=== PATIENT | female | born 1985 | race African-American/Black ===

== ENCOUNTER 2016-10-22 07:23 | Emergency (ER) | payer OTHER ==
[~2016-10-22] VITALS: Ht 165.1 cm; Wt 74.8 kg
[~2016-10-22 07:23] MED LIST: BENTYL20 M1 PO; FLEXERIL10 MG PO; GOOD SENSE IBU200 MG PO; IBU800 MG PO; IBUPROFEN800 M1 PO; LEVSIN0.125 MG PO; MOTRIN600 MG PO; PEPCID20 MG PO; TRAMADOL HCL50 M1 PO; ZOFRAN4 M1 PO; ZOFRAN4 M2 PO; ZOFRAN4 MG PO
[2016-10-22 07:32] VITALS: BP 122/77
--- NOTE | 2016-10-22 07:58 | ED ANKLE/FOOT INJURY COMPLAINT ---
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 IF I'M CLEANING AND I GO TO GET UP THERE IS A POPPING NOISE". HAS BEEN SEEN FOR THE SAME, HAS HAD XRAYS "THEY DON'T FIND ANYTHING". Triage Nurses Notes Reviewed? yes : No Patient currently breastfeeds: No HPI: MS. CELIS IS A 31 YO F W/ REMOTE PMH OF L KNEE PAIN. PAIN HAS BEEN ONGOING FOR THE PAST YEAR. PT STATES SHE WORKS A [employer] WHERE SHE IS IN HER FEET FOR 10-12 HRS A DAY. PT STATES WHEN SHE STANDS UP FROM BEING HER KNEES (FOR EXAMPLE CLEANING A TUB), SHE NOTICES THAT HE KNEE POPS (SHE COMPARES INVOLUNTARY CRACKING OF HER KNUCKLES). SHE NOTES AFTER THE POPPING, SHE DEVELOPS A BURNING PAIN SENSATION AND SOME STIFFNESS. PT DENIES ANY FALLS OR TRAUMA TO THE AREA. SHE PRESENTED TODAY BC SHE NOTED AN EPISODE YESTERDAY AND HAD AN ACUTE WORSENING OF HER KNEE PAIN. SHE DENIES INABILITY TO BEAR WEIGHT OR GAIT INSTABILITY. PT DENIES CP, ABD PAIN, N/V/D, FEVER, CHILL OR COUGH. OF NOTE, PMH NOTES DM, BUT PATIENT HAS HAD >100 LBS OF WEIGHT LOSS, AND NO LONGER TAKES METFORMIN. (INOCENCIA MEDINA,FELIPE) Reconcile Medications No Known Home Medications (VERONICA MEDINA,AILIN Marquez) Past History Travel History Traveled to [place] past 21 day No Medical History Any Pertinent Medical History? none Neurological: migraine EENT: NONE Cardiovascular: NONE Respiratory: NONE Gastrointestinal: NONE Hepatic: NONE Renal: NONE Musculoskeletal: NONE Psychiatric: depression Endocrine: diabetes, WEIGHT LOSS) Blood Disorders: NONE Cancer(s): NONE MANAGER GREEN/Reproductive: NONE Surgical History Surgical History: non-contributory, N Psychosocial History What is your primary language Prydeinig Tobacco Use: Current Daily Use Daily Tobacco Use Amount/Type: => 5 Cigarettes daily ETOH Use: denies use Illicit Drug Use: denies illicit drug use Family History Hx Contributory? No (FELIPE PRO MD) Review of Systems Review of Systems Constitutional: Reports: no symptoms. EENTM: Reports: no symptoms. Respiratory: Reports: no symptoms. Cardiovascular: Reports: no symptoms. GI: Reports: no symptoms. Musculoskeletal: Reports: joint pain, joint swelling. Skin: Reports: no symptoms. Neurological/Psychological: Reports: no symptoms. Hematologic/Endocrine: Reports: no symptoms. Immunologic/Allergic: Reports: no symptoms. All Other Systems: Reviewed and Negative (FELIPE PRO MD) Physical Exam Physical Exam General Appearance: well developed/nourished, no apparent distress, alert, awake Head: atraumatic, normal appearance Eyes: Bilateral: normal appearance, PERRL, EOMI. Ears, Nose, Throat: normal pharynx, normal ENT inspection, hearing grossly normal Neck: normal inspection, supple, full range of motion Cardiovascular/Respiratory: normal breath sounds, normal peripheral pulses, regular rate/rhythm, no respiratory distress Gastrointestinal: SOFT, NONTENDER Back: normal inspection, normal range of motion Leg/Knee/Thigh Left: normal range of motion, normal inspection Leg/Knee/Thigh Right: normal range of motion, normal inspection Ankle Left: normal inspection, normal range of motion Ankle Right: normal inspection, normal range of motion Neuro/Vascular: normal motor function, normal sensation Psychiatric: awake, alert, oriented x 3 Skin: intact, normal color, warm/dry (FELIPE PRO MD) Progress Differential Diagnosis: DVT, fracture, sprain, contusion, ARTHRITIS (FELIPE PRO MD) Plan of Care: Orders Procedure Date/time Status Durable Medical Equipment 10/22 0800 Active 31 YO F W/ KNEE PAIN X1 YR. NO ACUTE TRAUMA OR INJURY, SO UNLIKELY FRACTURE OR DISLOCATION. KNEE IS STABLE TO EXAMINATION AND DOES NOT APPEAR TO HAVE ANY JOINT EFFUSION OR SWELLING. PT HAS NO RISK FACTORS FOR DVT, AND IS PERC 0. PT ALSO DOES NOT ENDORSE CALF PAIN OR SWELLING. HISTORY AND EXAM CONSISTENT W/ SOURCE OF DISTRESS BEING THE KNEE. GIVEN CHRONICITY OF PAIN AND LACK OF ACUTE TRAUMA (EVEN REMOTE), LIKELY BENIGN PROCESS SUCH ARTHRITIS. PT ENDORSED HAVING SOME RELIEF W/ STRAIGHT KNEE BRACE, BUT HAS SINCE MISPLACED IT. WILL PLACE PATIENT IN STRAIGHT KNEE BRACE TODAY. GIVEN THE LACK OF TRAUMA, NO INDICATION FOR XR TODAY. WILL DC HOME W/ INSTRUCTIONS TO USE MOTRIN FOR PAIN AND RETURN PRECAUTIONS. PT ALSO GIVEN PCP LIST (PER HER REQUEST) AND RECOMMENDATION TO SEE AN ORTHOPEDIST OUTPATIENT IF NEEDED. (INOCENCIA MEDINA,FELIPE) Departure Departure Time of Disposition: 753 Disposition: HOME OR SELF CARE Condition: Stable Clinical Impression Primary Impression: Left knee pain Qualifiers: Chronicity: chronic Qualified Codes: M25.562 - Pain in left knee; G89.29 - Other chronic pain Referrals: RAUL SALGUERO APRN (PCP/Family) [facility] Additional Instructions: PLEASE USE MOTRIN 600MG EVERY 6 HOURS FOR PAIN NEEDED. TRY TO ELEVATE YOUR LEG AND REST MUCH POSSIBLE. YOU CAN ALSO PERFORM LIGHT RANGE OF MOTION EXERCISES. I RECOMMEND YOU FOLLOW UP WITH YOUR PRIMARY CARE DOCTOR IN A WEEK. IF THIS PERSISTS, YOU CAN SEE AN ORTHOPEDIC PHYSICIAN. IF THE PAIN WORSENS, YOU ARE UNABLE TO BEAR WEIGHT, OR ANY OTHER CONCERNING SYMPTOMS, PLEASE RETURN TO THE EMERGENCY DEPARTMENT. Departure Forms: Customer Survey General Discharge Information (INOCENCIA MEDINA,FELIPE) Departure Prescriptions: Current Visit Scripts No Known Home Medications Resident Co-Sign Statement Statement: ED Attending supervision documentation- [x] I saw and evaluated the patient. I have also reviewed all the pertinent lab results and diagnostic results. I agree with the findings and the plan of care as documented in the Resident's documentation. [] I have reviewed the ED Record and agree with the Resident's documentation. [] Additions or exceptions (if any) to the Resident's note and plan are summarized below: [] (VERONICA MEDINA,AILIN Marquez)
== END 2016-10-22 08:09 ==
LOC: ERH 07:23
DX: M25.562 Pain in left knee (principal)
CPT/HCPCS: 99282